=== PATIENT | female | born 1990 | race Caucasian/White ===

== ENCOUNTER 2016-10-19 21:19 | Emergency (ER) | payer MEDICAID ==
[~2016-10-19] VITALS: Ht 152.4 cm; Wt 59.0 kg
[2016-10-20] MEDS ORDERED: KETOROLAC 30MG/ML VIAL IV STA (02:52)
[2016-10-20] MEDS ORDERED: ONDANSETRON HCL 4MG/2ML VIAL IV STA (02:52)
[2016-10-20] MEDS ORDERED: SODIUM CHLORIDE 0.9% 1,000 ML IV ONE (03:02)
[2016-10-20 03:28] LABS: BASOPHILS % 0.3 % (0.0-2.0); EOSINOPHILS % 1.9 % (0.0-5.0); HEMOGLOBIN. 13.3 g/dL (12.0-16.0); LYMPHOCYTES % 28.1 % (20.0-50.0); MEAN CORPUSCULAR VOLUME 81.9 fL (81.0-99.0); MEAN PLATELET VOLUME 8.5 fl (7.4-10.4); MONOCYTES % 7.3 % (2.0-8.0); NEUTROPHILS % 62.4 % (40.0-76.0); PLATELET 208 x1000/uL (130-400); RED BLOOD CELL COUNT 4.76 mill/uL (4.2-5.4); RED CELL DISTRIBUTION WIDTH 12.9 % (11.6-14.6)
[2016-10-20 03:35] LABS: PROTHROMBIN TIME 10.8 sec (9.4-11.6)
[2016-10-20 03:43] LABS: CARBON DIOXIDE 27 mEq/L (21-32); CHLORIDE 108 mEq/L (98-107)
[2016-10-20 05:06] LABS: CLARITY URINE CLEAR (CLEAR); COLOR URINE YELLOW (YELLOW); KETONES URINE NEGATIVE (NEGATIVE); LEUKOCYTE ESTERASE URINE 2+ (NEGATIVE); NITRITE URINE NEGATIVE (NEGATIVE); OCCULT BLOOD URINE 1+ (NEGATIVE); PH URINE 5.5 (4.5-8.0); PROTEIN URINE NEGATIVE (NEGATIVE); SPECIFIC GRAVITY URINE 1.017 (1.005-1.030); UROBILINOGEN URINE 0.2 E.U./dL (0.2-1.0)
[2016-10-20 08:40] VITALS: BP 115/65
== END 2016-10-20 09:34 | disposition home or self-care (01) ==
LOC: ER 21:22
DX: R10.2 Pelvic and perineal pain (principal); R10.31 Right lower quadrant pain
CPT/HCPCS: 36415; 76830; 76856; 80053; 81001; 81025; 83690; 85025; 85610; 96361; 96374; 96375; 99285; J1885; J2405; J7030; Z7610